=== PATIENT | female | born 1945 | race Caucasian/White ===

== ENCOUNTER → 2016-05-06 | Outpatient (CLI) | payer OTHER ==
--- NOTE | 2016-05-06 10:49 | MA ---
Screening Digital Mammogram Clinical Indications: Routine screening. Technique: Standard cephalocaudal and mediolateral oblique projections are obtained. This examinati on is processed by the Apt[employer] computer aided detection system. Comparison: March 2015, March 2014, January 2013 and January 2012 Breast density: B; There are scattered fibroglandular densities. Findings: CAD was reviewed. No suspicious findings are identified. Impression: Negative mammogram. . BI-RADS 1. Recommendation: Routine screening is recommended in one year. [facility] will send a result letter to the patient. Negative mammography should not preclude additional workup of a clinically suspicious finding. The patient's information is entered into a reminder system with a target due date for her next mammo gram.
--- NOTE | 2016-05-06 11:24 | DX ---
Lumbar spine,2 views 05/06/2016 History: Chronic pain. Comparison examination: July 24, 2008. Findings: Mild degenerative anterolisthesis of L4 is identified. Intervertebral disk height loss at L 3-L4 and L4-L5 is compatible with degenerative disk disease. These findings were present previously a nd appear similar. No fracture identified. Impression: Lower lumbar degenerative disk disease with mild degenerative anterolisthesis of L4, nisreen lar to prior study.
--- NOTE | 2016-05-06 11:25 | DX ---
Thoracic spine, 3 views. History: Chronic pain. Findings: Thoracic vertebral body alignment is normal. Mild features of degenerative disk disease are present at the thoracolumbar junction. No fracture or subluxation identified. Features of degenerative disk disease within the lower cervical spine are incidentally noted on the s xin's view, predominantly C4-C5, C5-C6, C6-C7 . Impression: 1. Lower cervical and lower thoracic degenerative disk disease, without fracture or subluxation.
--- NOTE | 2016-05-06 17:25 | US ---
Renal Sonography Clinical History: 70-year-old female who previously had some left-sided flank pain which has since re solved. ICD10 Diagnostic Code: R10.9. Technique: A curvilinear 5 MHz transducer was used to sonographically evaluate the kidneys and the ur inary bladder. Color Doppler was also used. Comparison study: None. Findings: The kidneys are normal in size, shape, and position, with normal renal cortical thicknesses , and no hydronephrosis, perinephric fluid, or solid or cystic mass. The right kidney measures 11.0 x 4.9 x 4.7 cm with a renal cortical thickness of 1.0 cm, and the left kidney measures 12.0 x 4.7 x 5. 2 cm with a renal cortical thickness of 1.4 cm. There is some relative increased echogenicity associa breana with the liver, consistent with steatosis. The urinary bladder is incompletely-distended with onl y 16 mL of fluid, and a postvoid residual of 0.5 mL. The ureteral jets were seen however. Impression: Normal renal sonography.
== END ==
LOC: BMCIMAGING 08:23
PROVIDERS: ATTEND Internal Medicine
DX: Z12.31 Encounter for screening mammogram for malignant neoplasm of breast (principal); M51.36 Other intervertebral disc degeneration, lumbar region; M50.321 Other cervical disc degeneration at C4-C5 level; M50.322 Other cervical disc degeneration at C5-C6 level; M50.323 Other cervical disc degeneration at C6-C7 level; R10.9 Unspecified abdominal pain
CPT/HCPCS: G0202

== ENCOUNTER 2016-05-10 13:34 | Observation (INO) | payer OTHER ==
--- NOTE | 2016-05-10 14:07 | EDPHY ---
H & P Stated Complaint: became unsteady on feet while working out and fell. hit head. neg LOC+ vomt - Personal History Current Tetanus/Diphtheria Vaccine: Yes Current Tetanus Diphtheria and Acellular Pertussis (TDAP): Yes - Medical/Surgical History Hx Asthma: No Hx Chronic Respiratory Disease: No Hx Diabetes: No Hx Cardiac Disease: No Hx Renal Disease: No Hx Cirrhosis: No Hx Alcoholism: No Hx HIV/AIDS: No Hx Splenectomy or Spleen Trauma: No Other PMH: ANXIETY, HYPOTHYROIDISM, HYPERLIPIDEMIA - Social History Smoking Status: Never smoked Time Seen by Provider: 05/10/16 13:41 HPI/ROS: CHIEF COMPLAINT: Fell hit head mechanical fall HISTORY OF PRESENT ILLNESS: 70-year-old female arrives via ambulance, not a trauma activation, 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 No loss of consciousness. No laceration. She vomited and shortly after hitting her head. No current complaints of nausea. No neck pain. Placed in cervical collar by EMS. No peripheral paresthesia, weakness, numbness. No chest pain. No back pain. No genitalia injury. PRIMARY CARE PROVIDER: Dr. Goldie Ramey REVIEW OF SYSTEMS: A ten point review of systems was performed and is negative with the exception of the items mentioned in the HPI PAST MEDICAL/SURGICAL HISTORY: no anticoagulant use SOCIAL HISTORY: denies alcohol use at time of incident. Lives by herself PHYSICAL EXAM 1) GENERAL: Well-developed, well-nourished, alert and oriented. Answering questions appropriately. 2) HEAD: Normocephalic, Left occipital hematoma 3) HEENT: Pupils equal, round, reactive to light bilaterally. Negative Horners. Nasopharynx, oropharynx, clear. No deformity or angulation of nose. No septal hematoma. No rhinorrhea. No oral trauma. Ears bilaterally with normal tympanic membranes. No hemotympanum. No fluid or blood in the external auditory canal. No raccoon eyes. No Santamaria sign. Teeth are normally aligned with no gross malocclusion, TMJ bilaterally nontender, facial bones nontender including the zygomatic arch, maxilla mandible. 4) NECK: Cervical collar is on.Cervical collar is removed while holding inline traction and patient is unable to completely differentiate between true midline pain versus just lateral of midline pain.Cervical collar is replaced at that point. 5) LUNGS: Clear to auscultation bilaterally, no wheezes, no rhonchi, no retractions. No obvious signs of trauma. No chest wall pain. No flaring, no grunting. Moving symmetrically. No crepitus. 6) HEART: Regular rate and rhythm, 7) ABDOMEN: No guarding, no rebound, no focal tenderness, no peritoneal signs, no signs of trauma, no ecchymosis 8) MUSCULOSKELETAL: Moving all extremities, no focal areas of tenderness, no obvious trauma. 9) BACK: No midline vertebral tenderness, no fluctuance, no step-off, no obvious trauma, no visual or palpable abnormality. 10) SKIN: No laceration. No abrasion 11) NEURO: Awake, alert, and oriented to person, place and time. Answers questions appropriately. There were no obvious focal neurologic abnormalities. Upper and lower extremities bilaterally with strength 5 / 5, reflexes 2+. DIFFERENTIAL DIAGNOSIS: [ Not necessarily in any particular order, my differential diagnosis includes, but is not limited to, concussion, skull fracture, intraparenchymal contusion, subarachnoid, subdural and epidural hematoma. The patient understands that this diagnosis is provisional and can never be 100% accurate. (Yanna Win) Constitutional: Initial Vital Signs Temperature (C) 36.6 C 05/10/16 13:49 Heart Rate 84 05/10/16 13:49 Respiratory Rate 16 05/10/16 13:49 Blood Pressure 134/80 H 05/10/16 13:49 O2 Sat (%) 92 05/10/16 13:49 O2 Delivery Mode Room Air Allergies/Adverse Reactions: No Known Allergies Allergy (Unverified 08/21/14 20:40) Home Medications: Medication Instructions Recorded Atorvastatin Calcium [Lipitor 20 20 mg PO DAILY06 08/22/14 mg (*)] Cholecalciferol (Vitamin D3) 2,000 unit PO DAILY 08/22/14 [Vitamin D3] Cyanocobalamin [Vitamin B12 (*)] 1,000 mcg PO DAILY 08/22/14 Levothyroxine [Synthroid 125 mcg 125 mcg PO DAILY06 08/22/14 (*)] Multivitamins [Multivitamin (*)] 1 each PO DAILY 08/22/14 Naphazoline HCl/Pheniramine [Eye 1 drop EACHEYE DAILY PRN 08/22/14 Allergy Relief Drops] Sertraline HCl [Zoloft 100mg (*)] 100 mg PO DAILY06 08/22/14 Albuterol [Proventil Inhaler HFA 1 - 2 puffs IH DAILY PRN 05/10/16 (*)] Ibuprofen [Motrin (*)] 200 - 400 mg PO Q4-6PRN PRN 05/10/16 Nortriptyline HCl [Pamelor 10 mg 10 mg PO HS PRN 05/10/16 (*)] Acetaminophen [Tylenol ES 500 mg 1,000 mg PO Q8 #0 tab 05/11/16 (*)] Albuterol [Proventil Inhaler HFA 1 - 2 puffs IH BID #0 mdi 05/11/16 (*)] Atorvastatin Calcium [Lipitor 20 20 mg PO DAILY06 #0 tab 05/11/16 mg (*)] Cholecalciferol Vit D3 [Vitamin D3 2,000 units PO DAILY #0 each 05/11/16 2000 units tab (OTC)] Cyanocobalamin [Vitamin B12 (*)] 1,000 mcg PO DAILY #0 tab 05/11/16 Naphazoline HCl/Phenir Mal 1 drops EACHEYE DAILY PRN #0 05/11/16 [Visine-A] opht.btl Nortriptyline HCl [Pamelor 10 mg 10 mg PO HS PRN #0 cap 05/11/16 (*)] Sertraline HCl [Zoloft 100mg (*)] 100 mg PO DAILY06 #0 tab 05/11/16 Medical Decision Making - Diagnostics Imaging: Noncontrast Head CT and CT Cervical Spine 1412 hours History: Head trauma with posterior pain and neck pain. Fell earlier today. Technique: Standard noncontrast head CT protocol utilizing axial images was acquired through the calvarium. Images were reconstructed in multiple planes as well. Spiral imaging was obtained through the cervical spine. Images were reconstructed at 1.25 mm slice thickness. Images were reconstructed in multiple planes. Dose reduction techniques were utilized. Findings: CT Head: There is focal cortical hemorrhage anterior aspect of the right and left frontal lobes without extension into the white matter. No additional intracranial hemorrhage is seen. The remainder of the cerebral parenchyma has a normal attenuation. There are no masses, additional intracranial hemorrhage, subdural collections, or evidence of recent cerebral infarction. There is nondisplaced fracture left occipital bone. The remainder of the calvarium is intact.. The paranasal sinuses are clear. CT Cervical Spine: Vertebral body heights are well maintained. There are no subluxations. No fractures are seen. There is mild right-sided facet hypertrophy at C2-C3, mild to moderate on the right at C3-C4, and mild to moderate on the left at C7-T1. There is mild to moderate intervertebral disk space narrowing at C4-C5, C5-C6, and C6-C7 with associated marginal osteophytes. Paravertebral soft tissues demonstrate no significant abnormality. Impression: 1. Cortical hemorrhage anterior margin of each frontal lobe. 2. Fracture without depression left occipital bone. 3. No acute fracture associated with the cervical spine. 4. Scattered facet hypertrophy along with degenerative disk disease involving the cervical spine as detailed above. Findings were discussed by telephone with Madi Win PA-C at 1442 hrs. Images reviewed by myself (Yanna Win) ED Course/Re-evaluation: 2:50 p.m.: Discussed case Dr. Russell Mcmanus, discussed the positive CT imaging findings for occipital fracture and frontal cortical hemorrhage. Dr. Russell Mcmanus also examined the patient. Plan will be admission to Trauma and Neurosurgery consultation. No history of anticoagulant use. Patient lives by herself. 2:54 p.m.: Phone consultation with the circulating nurse for Dr. Juma Cannon who is currently in operating room 2:58 p.m.: Phone consultation with BAY Miramontes with Neurosurgery who will consult. (Yanna Win) Critical Care: Total Critical Care Time Spent Managing this Patient: 65 minutes Minutes. This time was spent Exclusively with this patient. This Care was exclusive of procedures. The Organ System/life at risk was neuro trauma This Patient was in Critical Condition because cortical hemorrhages (Russell Mcmanus) - Data Points Laboratory Results: Laboratory Results 05/10/16 14:55 05/10/16 14:55 Medications Given: Discontinued Medications Acetaminophen (Tylenol) 1,000 mg PO Q8 [facility] Stop: 11/06/16 21:59 Last Admin: 05/11/16 07:29 Dose: Not Given Albuterol (Proventil Inhaler) 1 - 2 puffs IH BID MICHELLE Stop: 11/06/16 20:59 Last Admin: 05/11/16 10:06 Dose: 2 puffs Atorvastatin Calcium (Lipitor) 20 mg PO DAILY06 MICHELLE Stop: 11/07/16 05:59 Last Admin: 05/11/16 07:29 Dose: Not Given Cholecalciferol (Vitamin D) 2,000 units PO DAILY MICHELLE Stop: 11/07/16 08:59 Last Admin: 05/11/16 10:14 Dose: 2,000 units Sodium Chloride (Ns) 1,000 mls @ 100 mls/hr IV CONT MICHELLE Stop: 11/06/16 15:44 Last Admin: 05/10/16 17:33 Dose: 1,000 mls Levothyroxine Sodium (Synthroid) 125 mcg PO DAILY06 MICHELLE Stop: 11/07/16 05:59 Last Admin: 05/11/16 07:29 Dose: Not Given Multivitamins (Tab-A-Ree) 1 each PO DAILY MICHELLE Stop: 11/07/16 08:59 Last Admin: 05/11/16 10:14 Dose: 1 each Sertraline HCl (Zoloft) 100 mg PO DAILY06 MICHELLE Stop: 11/07/16 05:59 Last Admin: 05/11/16 07:30 Dose: Not Given Vitamin B Complex (Vitamin B12) 1,000 mcg PO DAILY MICHELLE Stop: 11/07/16 08:59 Last Admin: 05/11/16 10:14 Dose: 1,000 mcg Departure - Departure Disposition: [facility] Acute Clinical Impression: Cortical hemorrhage Occipital fracture Qualifiers: Encounter type: initial encounter Fracture type: closed Occipital fracture type : unspecified fracture of occiput Laterality: left Qualified Code(s): S02.119A - Unspecified fracture of occiput, initial encounter for closed fracture Condition: Good
--- NOTE | 2016-05-10 14:45 | CT ---
Noncontrast Head CT and CT Cervical Spine 1412 hours History: Head trauma with posterior pain and neck pain. Fell earlier today. Technique: Standard noncontrast head CT protocol utilizing axial images was acquired through the griffin varium. Images were reconstructed in multiple planes as well. Spiral imaging was obtained through the cervical spine. Images were reconstructed at 1.25 mm slice th [facility]. Images were reconstructed in multiple planes. Dose reduction techniques were utilized. Findings: CT Head: There is focal cortical hemorrhage anterior aspect of the right and left frontal lobes witho ut extension into the white matter. No additional intracranial hemorrhage is seen. The remainder of t he cerebral parenchyma has a normal attenuation. There are no masses, additional intracranial hemorrh age, subdural collections, or evidence of recent cerebral infarction. There is nondisplaced fracture left occipital bone. The remainder of the calvarium is intact.. The paranasal sinuses are clear. CT Cervical Spine: Vertebral body heights are well maintained. There are no subluxations. No fracture s are seen. There is mild right-sided facet hypertrophy at C2-C3, mild to moderate on the right at C3 -C4, and mild to moderate on the left at C7-T1. There is mild to moderate intervertebral disk space n arrowing at C4-C5, C5-C6, and C6-C7 with associated marginal osteophytes. Paravertebral soft tissues demonstrate no significant abnormality. Impression: 1. Cortical hemorrhage anterior margin of each frontal lobe. 2. Fracture without depression left occipital bone. 3. No acute fracture associated with the cervical spine. 4. Scattered facet hypertrophy along with degenerative disk disease involving the cervical spine as d etailed above. Findings were discussed by telephone with Madi Win PA-C at 1442 hrs.
[2016-05-10 15:04] LABS: % IMMATURE GRANULYOCYTES 0.4 % (0.0-1.1); ABSOLUTE IMMATURE GRANULOCYTES 0.03 10^3/uL (0.00-0.10); ADD DIFF? NO; ADD MORPH? NO; ADD SCAN? NO; ATYPICAL LYMPHOCYTE FLAG 0 (0-99); FRAGMENT RBC FLAG 20 (0-99); HEMATOCRIT 40.1 % (38.0-47.0); HEMOGLOBIN 13.9 g/dL (12.6-16.3); LEFT SHIFT FLG 0 (0-99); LIPEMIA HEMOLYSIS FLAG 90 (0-99); MEAN CELL HEMOGLOBIN 33.9 pg (27.9-34.1); MEAN CELL HEMOGLOBIN CONCENTR. 34.7 g/dL (32.4-36.7); MEAN CELL VOLUME 97.8 fL (81.5-99.8); MEAN PLATELET VOLUME 10.6 fL (8.7-11.7); PLATELET CLUMPS FLAG 10 (0-99); PLATELET COUNT 203 10^3/uL (150-400)
[2016-05-10 15:13] LABS: ANION GAP 9 mEq/L (8-16); CALCIUM 9.8 mg/dL (8.5-10.4); CARBON DIOXIDE 28 mEq/l (22-31); CHLORIDE 103 mEq/L (97-110); CREATININE 0.6 mg/dL (0.6-1.0); GLOMERULAR FILTRATION RATE > 60; GLUCOSE 91 mg/dL (70-100); POTASSIUM 4.4 mEq/L (3.5-5.2); SODIUM 140 mEq/L (134-144)
[2016-05-10] MEDS ORDERED: ONDANSETRON 4 MG/2 ML VIAL IVP PRN (15:24)
[2016-05-10 15:27] LABS: APTT 23.1 SEC (23.0-38.0); INR 1.11 (0.83-1.16); PROTIME(PATIENT) 14.2 SEC (12.0-15.0)
[2016-05-10] MEDS ORDERED: HYDROmorphONE/DILAUDID 1 MG/ML SYR IVP PRN (15:33)
--- NOTE | 2016-05-10 15:43 | NEUSURGPN ---
Assessment/Plan: 70 yo female s/p fall at PT earlier today with occipital nondisplaced skull fracture and bilateral small frontal contusions. GCS 15. Neuro intact. -Admit for observation -No repeat scan unless change in exam -Can dc home tomorrow if doing well and ok with primary team(trauma) -Seen by Dr. Carias as well -Call with any changes in neuro/motor exam -Full consult dictated #[id number] Olga Lidia Forrester PA-C [phone] [facility] - Physician Discussed Patient with Dr.: Carias Patient Seen by Dr.: Carias Neurosurgery Physical Exam - Vitals, I&O, Labs Vital Signs Temp Pulse Resp BP Pulse Ox 36.6 C 70 20 161/83 H 96 05/10/16 13:49 05/10/16 15:15 05/10/16 15:15 05/10/16 15:15 05/10/16 15:15 ICD10 Worksheet Patient Problems: Problems Problem Status Diagnosed Cortical hemorrhage Acute Occipital fracture Acute
[2016-05-10] MEDS ORDERED: NS 1,000 ML IV SCH (15:45)
--- NOTE | 2016-05-10 16:40 | GCON ---
[f rep st] CONSULTATION NEUROSURGICAL CONSULTATION DATE OF ADMISSION: 05/10/2016 CHIEF COMPLAINT: Fall. 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 The patient denies any loss of consciousness. She was brought to [facility] Emergency Room for further evaluation and underwent a CT scan of the head, which showed an occipital fracture as well as some contrecoup frontal contusions. At this time of our consultation, she denies any headaches, nausea, vomiting, vision changes, slurred speech, confusion or any weakness. She denies any numbness, tingling or weakness in any of her upper extremities or lower extremities. She denies neck pain. She states that she was going to a assistant athletic trainer in general for her health and not for any other physical therapy reasons. She currently does not take any blood thinning medication, such as Coumadin or aspirin. REVIEW OF SYSTEMS: A 10-point review of systems was obtained and is otherwise negative, or as stated in the HPI. PAST MEDICAL HISTORY: High cholesterol and hypothyroidism. FAMILY HISTORY: Negative for any neurologic history, such as aneurysms or vascular malformations. Her mother did have a stroke at a young age. 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 She denies any smoking history. Denies any illicit drug use. She drinks alcohol occasionally, has some wine with dinner every night. PAST SURGICAL HISTORY: Cataract surgery, olecranon surgery in 2016. MEDICATIONS: Home medications include Lipitor, vitamin D3, vitamin B12, Synthroid and multivitamin. ALLERGIES: The patient has no known drug allergies. PHYSICAL EXAMINATION: VITAL SIGNS: Blood pressure 161/83, heart rate 70, respiratory rate 20, O2 saturation is 96% on 2 L by nasal cannula. GENERAL: The patient is alert and oriented x3, in no acute distress. HEAD, EARS, NOSE AND THROAT: Head is normocephalic, atraumatic. The patient is tender to palpation over the posterior occipital lobe near her fracture area. NECK: Supple and has full range of motion. EYES: Pupils are equal and reactive to light and accommodation. Extraocular muscles are intact. RESPIRATORY: The patient has normal work of breathing. CARDIOVASCULAR: The patient is well perfused. ABDOMEN: The patient has no guarding. NEUROLOGIC: Cranial nerves 2 -12 are grossly intact. Tongue protrusion is midline. Face is symmetrical. Accessory muscles are 5/5 and equal in strength. The patient has a negative pronator drift. Bilateral upper extremities and lower extremities are 5/5 and equal in strength in all muscles groups, including deltoids, biceps, triceps, wrist extensors, flexors, interossei and liability analyst, and quadriceps, hamstrings, dorsiflexion, plantar flexion, and EHL. Sensation is intact over the neural distribution of the body. LABORATORY DATA: White blood cell count 7.76, red blood cell count 4.10, hemoglobin 13.9, hematocrit 40.1, platelets 203. INR 1.11, PT 14.2, APTT 23.1. Sodium 140, potassium 4.4, chloride 103, carbon dioxide 28, anion gap 7, creatinine 0.6, glucose 91. DIAGNOSTIC IMAGING REVIEW: A head CT was performed without contrast and shows a cortical hemorrhage at the anterior margin of each frontal lobe. Fracture with depression of left occipital bone. No acute fracture associated with the cervical spine. Scattered facet hypertrophy along with degenerative disk disease involving the cervical spine. A CT of the cervical spine was performed and shows no acute fracture associated with the cervical spine and again, scattered facet hypertrophy along with multiple levels of degenerative disk disease. No concerning other acute fractures. ASSESSMENT: This is a 70-year-old female who had a fall earlier today and suffered from a small nondisplaced occipital skull fracture as well as contrecoup bilateral frontal contusions. At this time, she remains neurologically intact with a GCS of 15. She is not on any blood thinners. She is not complaining of any other concerning symptoms at this time. PLAN: At this time, we recommend admitting this patient overnight for close observation. Should she have any changes in her neurologic or motor exam, we will repeat a head CT. Otherwise, no further scans are warranted at this time. She would most likely be okay to discharge home tomorrow if otherwise doing well. I discussed postconcussive symptoms with the patient at the bedside today and did explain that, should she have any worsening of symptoms, she should give our office a call. She is okay to take ibuprofen for headaches as needed or Tylenol. She is to follow up with our office as needed, if doing well and is discharged tomorrow. Again, if there any questions, please do not hesitate to contact the Neurosurgical Services. The patient was seen in the emergency room at 3:[address] Carias and myself. /[id number]/MODL MTDD
[2016-05-10] MEDS ORDERED: NAPHAZOLINE HCL/PHENIR 15 ML OPHT.BTL EACHEYE PRN (16:51)
[2016-05-10] MEDS ORDERED: NORTRIPTYLINE HCL 10 MG CAP PO PRN (16:51)
--- NOTE | 2016-05-10 16:57 | DX ---
PA and lateral chest. Clinical History: PAIN Comparison Study: August 21, 2014.. Findings: The lungs are clear. No pleural disease identified. Heart size is normal. Mild pectus excavatum.. Impression: Negative chest.
--- NOTE | 2016-05-10 17:35 | GHP ---
[f rep st] PREOP HISTORY AND PHYSICAL DATE OF ADMISSION: 05/10/2016 ADMITTING DIAGNOSIS: Fall from standing with nondisplaced skull fracture and small bilateral frontal cortical hematoma. 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 She lost her balance, fell backwards, and hit her head. There was no loss of consciousness but she did feel dazed. She came to the ER for evaluation. Note is made she had a prior head injury 4 years ago. She has noted that her hearing has been "funny" since the event. She was evaluated in the ER and was found to have a linear posterior occipital skull fracture which inferiorly drifts off to the left. She has bilateral frontal contusions as mentioned above. The C-spine, this has degenerative disk changes. SOCIAL HISTORY: She does not smoke. She drinks 2-3 glasses of red wine per day. ALLERGIES: She has no known drug allergies. PAST MEDICAL HISTORY: She fell several years ago and had a left olecranon fracture which was treated by operative reduction internal fixation and subsequent hardware removal. She has had bilateral cataract extractions. The 1st one was on the left side, which left her with a permanently mildly dilated left iris. There is no history of rheumatic fever tuberculosis hepatitis transfusions or HIV. MEDICATIONS: She takes an albuterol inhaler 1-2 puffs daily. She uses Lipitor 20 mg daily, vitamin D3 2000 units daily, vitamin B12 1000 mcg daily, levothyroxine 125 mg daily, Zoloft 100 mg daily, Pamelor 10 mg at bedtime, ibuprofen 200-400 mg every 4 6 hours. She uses naphazoline hydrochloride/ pheniramine 1 drop in each eye daily. REVIEW OF SYSTEMS: She has had an elevated cholesterol and been on medication for the past 2 years. She has been hypothyroid since her 20s. Her last TSH was checked 1 year ago. She has dental crowns. Her last mammogram was last week but she has not heard the results. There are no limits on her activities. No history of steroid use. She has a history of a back spasm which occurs on and off, whenever she does strengthening exercises it goes away for a period of time. PHYSICAL EXAMINATION: NEUROLOGIC: She is awake, alert, oriented x3. Personable and conversant. She is oriented to person place and time. GCS is 15. The skull is palpably normal except for a fullness posteriorly. There are no Santamaria eyes. There are no raccoon eyes. Tympanic membranes are clear. She has normal dental occlusion. Her left iris is 3 mm while her right iris is 2. The left is sluggish to light. The right does react. There are no focalizing lateralizing neurologic findings. Cerebellar function is intact to finger-to- nose, [id number] testing. She can subtract serial sevens. NECK: Her neck is nontender. There is no thyroid enlargement. Her carotids were unremarkable. BACK: Clear to auscultation and is unremarkable to examination. CHEST: Stable to AP and lateral compression. CARDIAC: Shows S1, S2 to be normal with a normal split of S2 without murmurs, rubs, or gallops. ABDOMEN: Soft and generous. She has normoactive bowel sounds. PELVIS: Stable to AP and lateral compression. EXTREMITIES: Lower extremities are unremarkable. IMPRESSION: Patient with a fall and cortical skull fracture with contrecoup injury, is neurologically intact at this point. She will be admitted to the ICU. Neurosurgery will see her in consultation. A followup CT scan will be obtained. /[id number]/MODL MTDD
[2016-05-10] MEDS: ALBUTEROL 60 PUFFS/8 GM MDI IH SCH (21:35)
[2016-05-10] MEDS: ACETAMINOPHEN 500 MG TAB PO SCH (22:09)
[2016-05-11 00:09] VITALS: TEMP 98.2
[2016-05-11] MEDS ORDERED: ATORVASTATIN CALCIUM 20 MG TAB PO SCH (06:00)
[2016-05-11] MEDS ORDERED: LEVOTHYROXINE 125 MCG TAB PO SCH (06:00)
[2016-05-11] MEDS ORDERED: SERTRALINE HCL 100 MG TAB PO SCH (06:00)
[2016-05-11 06:19] LABS: ANION GAP 5 mEq/L (8-16); CALCIUM 8.3 mg/dL (8.5-10.4); CARBON DIOXIDE 24 mEq/l (22-31); CHLORIDE 112 mEq/L (97-110); CREATININE 0.5 mg/dL (0.6-1.0); GLOMERULAR FILTRATION RATE > 60; GLUCOSE 85 mg/dL (70-100); POTASSIUM 4.3 mEq/L (3.5-5.2); SODIUM 141 mEq/L (134-144)
[2016-05-11 06:58] LABS: % IMMATURE GRANULYOCYTES 0.2 % (0.0-1.1); HEMATOCRIT 35.5 % (38.0-47.0); HEMOGLOBIN 12.3 g/dL (12.6-16.3); MEAN CELL HEMOGLOBIN 34.2 pg (27.9-34.1); MEAN CELL HEMOGLOBIN CONCENTR. 34.6 g/dL (32.4-36.7); MEAN CELL VOLUME 98.6 fL (81.5-99.8); PLATELET COUNT 148 10^3/uL (150-400)
[2016-05-11 06:59] LABS: ABSOLUTE IMMATURE GRANULOCYTES 0.01 10^3/uL (0.00-0.10); ADD DIFF? NO; ADD MORPH? NO; ADD SCAN? NO; ATYPICAL LYMPHOCYTE FLAG 0 (0-99); FRAGMENT RBC FLAG 20 (0-99); LEFT SHIFT FLG 0 (0-99); LIPEMIA HEMOLYSIS FLAG 90 (0-99); PLATELET CLUMPS FLAG 0 (0-99)
[2016-05-11] MEDS: ACETAMINOPHEN 500 MG TAB PO SCH (07:29)
[2016-05-11] MEDS ORDERED: MULTIVITAMINS 1 EACH TAB PO SCH (09:00)
[2016-05-11] MEDS ORDERED: CHOLECALCIFEROL VIT D3 2,000 UNITS TAB/CAP PO SCH (09:00)
[2016-05-11] MEDS ORDERED: CYANO/VITAMIN B12 1000 MCG TAB PO SCH (09:00)
[2016-05-11 09:22] VITALS: BP 129/64
[2016-05-11] MEDS: ALBUTEROL 60 PUFFS/8 GM MDI IH SCH (10:06)
--- NOTE | 2016-05-11 10:43 | GDS ---
[f rep st] DISCHARGE SUMMARY HISTORY OF PRESENT ILLNESS: The patient is a 70-year-old female who fell while working out yesterda y, sustaining an occipital skull fracture and bifrontal mild cortical hemorrhage. HOSPITAL COURSE: She was watched overnight in the intensive care unit. No change in mental status. Repeat CT scan showed no significant change. At the time of discharge, she is having a cognitive evaluation, but appears to be alert, oriented and with minimal sequelae other than some discomfort i n her right ear. FINAL DIAGNOSIS: Fall, occipital fracture, bifrontal cortical hemorrhage. PLAN: Home. Follow up with Neurosurgery in several weeks for any persistent symptoms. The patient declines any narcotic prescription at home. /[id number]/MODL
--- NOTE | 2016-05-11 10:47 | SOAPPROG ---
Downtime Inpatient MD Late Entry SOAP Note: This note is not entered late but having trouble with other documentation forms pulling previous info into note and unable to delete. A/P:70 yo female s/p fall at PT earlier today with occipital nondisplaced skull fracture and bilateral small frontal contusions. GCS 15. Neuro intact. -Neuro stable and doing well this am -No repeat scan unless change in exam -Can dc home today from neuro standpoint -Follow up with Dr. hill prn -Warning signs given -Call with any changes in neuro/motor exam S: Patient states she is doing well this am, has some neck soreness but denies headaches, nausea, vomiting, vision changes. O: NAD, VSS CN II-XII grossly intact no droop Negative pronator drift Nontender to palpation over cervical spine BUE/BLE 07/30=
[2016-05-11 11:23] VITALS: PULSE 79; RESP 16; O2SAT 96
== END 2016-05-11 13:01 | disposition home or self-care (01) ==
LOC: EDUNIT# → INTOOBSV 15:03 → F2N 17:11
PROVIDERS: ADMIT Surgery; ATTEND Surgery
DX: S02.11HA Other fracture of occiput, left side, initial encounter for closed fracture (principal); S06.360A Traumatic hemorrhage of cerebrum, unspecified, without loss of consciousness, initial encounter; W18.39XA Other fall on same level, initial encounter; Y93.B9 Activity, other involving muscle strengthening exercises; Y92.39 Other specified sports and athletic area as the place of occurrence of the external cause; E78.00 Pure hypercholesterolemia, unspecified; E03.9 Hypothyroidism, unspecified
CPT/HCPCS: 71020; 92523; 97165; 99291; G0378; G8987; G8988; G8989; G9165; G9166; G9167

== ENCOUNTER → 2017-05-16 | Outpatient (CLI) | payer OTHER, MEDICARE | LOC: BMCIMAGING 08:22 | PROVIDERS: ATTEND Internal Medicine | DX: Z12.31 Encounter for screening mammogram for malignant neoplasm of breast (principal) ==

== ENCOUNTER → 2018-06-30 | Outpatient (CLI) | payer OTHER, MEDICARE | LOC: BMCIMAGING 12:07 | PROVIDERS: ATTEND Internal Medicine | DX: Z12.31 Encounter for screening mammogram for malignant neoplasm of breast (principal); Z80.3 Family history of malignant neoplasm of breast ==